=== PATIENT | male | born 1970 | race American Indian/Alaskan Native ===

== ENCOUNTER 2019-01-05 15:31 | Emergency (ER) | payer SELFPAY ==
[2019-01-05 15:38] VITALS: BP 161/86
--- NOTE | 2019-01-05 15:42 | Emergency Department Report ---
Blank Doc - Documentation Documentation: 48-year-odl male that presents with abdominal pain with n/v. This initial assessment/diagnostic orders/clinical plan/treatment(s) is/are subject to change based on patient's health status, clinical progression and re- assessment by fellow clinical providers in the ED. Further treatment and workup at subsequent clinical providers discretion. Patient/guardians urged not to elope from the ED as their condition may be serious if not clinically assessed and managed. Initial orders include: 1- Patient sent to [facility] for further evaluation and treatment 2- labs 3- UA
[2019-01-05 16:17] LABS: Basophils % (Auto) 0.3 % (0.0-1.8); Eosinophils # (Auto) 0.1 K/mm3 (0.0-0.4); Eosinophils % (Auto) 1.1 % (0.0-4.3); Hematocrit 45.2 % (35.5-45.6); Hemoglobin 14.9 gm/dl (11.8-15.2); Lymphocytes # (Auto) 0.9 K/mm3 (1.2-5.4); Lymphocytes % (Auto) 10.7 % (13.4-35.0); Mean Corpuscular HGB Conc 33 % (32-34); Mean Corpuscular Volume 81 fl (84-94); Monocytes % (Auto) 11.5 % (0.0-7.3); Platelet Count 211 K/mm3 (140-440); Red Blood Count 5.58 M/mm3 (3.65-5.03); Red Cell Distribution Width 14.4 % (13.2-15.2)
[2019-01-05 16:58] LABS: Alanine Aminotransferase 34 units/L (7-56); Albumin 4.3 g/dL (3.9-5); BUN/Creatinine Ratio 16; Blood Urea Nitrogen 22 mg/dL (9-20); Calcium 9.4 mg/dL (8.4-10.2); Hemolysis Index 12
--- NOTE | 2019-01-05 18:27 | Emergency Department Report ---
ED Abdominal Pain HPI - General Chief Complaint: Abdominal Pain Stated Complaint: KIDNEY PAIN Time Seen by Provider: 01/05/19 15:41 Source: patient Mode of arrival: Ambulatory Limitations: No Limitations - History of Present Illness Initial Comments: Patient is 48 years old male with history of diabetes. Patient presented to the ER complaining of left flank pain for the last 2 days. Patient describes his pain as intermittent. Patient stated that pain radiated down to the suprapubic area. Patient stated that he experienced frequent urination. Patient denied any fever or chills. No nausea or vomiting. MD Complaint: flank pain -: days(s) (2) Location: L flank Radiation: suprapubic Quality: sharp - Related Data Allergies Allergy/AdvReac Type Severity Reaction Status Date / Time No Known Allergies Allergy Unverified 01/05/19 18:41 ED Review of Systems ROS: Stated complaint: KIDNEY PAIN Other details as noted in HPI Comment: All other systems reviewed and negative Constitutional: denies: chills, fever Respiratory: denies: cough, shortness of breath, SOB with exertion Cardiovascular: denies: chest pain, palpitations Gastrointestinal: abdominal pain. denies: nausea, vomiting, diarrhea, constipation, hematemesis, hematochezia Musculoskeletal: back pain Neurological: denies: headache, weakness ED Past Medical Hx - Social History Smoking Status: Never Smoker Substance Use Type: None ED Physical Exam - General Limitations: No Limitations General appearance: alert, in no apparent distress - Head Head exam: Present: atraumatic, normocephalic, normal inspection - Eye Eye exam: Present: normal appearance - ENT ENT exam: Present: normal exam, mucous membranes moist - Neck Neck exam: Present: normal inspection. Absent: meningismus - Respiratory Respiratory exam: Present: normal lung sounds bilaterally - Cardiovascular Cardiovascular Exam: Present: normal heart sounds - GI/Abdominal GI/Abdominal exam: Present: soft, normal bowel sounds. Absent: distended, tenderness, guarding, rebound, rigid, mass, bruit, pulsatile mass - Extremities Exam Extremities exam: Present: normal inspection, full ROM, normal capillary refill - Back Exam Back exam: Present: normal inspection, CVA tenderness (L). Absent: CVA ten derness (R) - Neurological Exam Neurological exam: Present: alert, oriented X3, CN II-XII intact, normal gait, reflexes normal - Skin Skin exam: Present: warm, intact, normal color ED Course Vital Signs 01/05/19 01/05/19 01/05/19 15:37 18:40 18:51 Temperature 97.7 F Pulse Rate 88 Respiratory 18 17 17 Rate Blood Pressure 161/86 O2 Sat by Pulse 95 Oximetry ED Medical Decision Making - Lab Data Result diagrams: 01/05/19 15:53 01/05/19 15:53 - Radiology Data Radiology results: report reviewed - Medical Decision Making Patient is 48 years old male with history of diabetes. Patient presented to the ER complaining of left flank pain for the last 2 days. Patient describes his pain as intermittent. Patient stated that pain radiated down to the suprapubic area. Patient stated that he experienced frequent urination. Patient denied any fever or chills. No nausea or vomiting. Patient received morphine and Zofran. Patient stated that he is feeling much better. CT abdomen and pelvis showed a left ureteral cycle stone 0.3 cm, obstructing. Patient strongly advised to follow-up with Dr. Lott, urologist for further management. Patient also given a prescription for [place] and Zofran and Flomax. Patient advised to return to the ER if symptoms are not improved. Critical care attestation.: If time is entered above; I have spent that time in minutes in the direct care of this critically ill patient, excluding procedure time. ED Disposition Clinical Impression: Left flank pain, Ureteric calculus Disposition: - TO HOME OR SELFCARE Is pt being admited?: No Condition: Stable Instructions: Renal Colic (ED), Kidney Stones (ED) Referrals: PRIMARY MD LIA [Primary Care Provider] - 3-5 Days TUSHAR LOTT MD [Staff Physician] - 3-5 Days
[2019-01-05] MEDS ORDERED: ONDANSETRON 4 MG/2 ML INJ IM ONE (18:42)
[2019-01-05] MEDS ORDERED: MORPHINE 4 MG/1 ML INJ IM ONE (18:42)
[2019-01-05 19:14] LABS: Bilirubin,Urine Negative (Negative); Blood,Urine Small (Negative); Color,Urine Yellow (Yellow)
[2019-01-05 19:15] LABS: Protein,Urine <15 mg/dL mg/dL (Negative); Urobilinogen,Urine < 2.0 mg/dL (<2.0)
[2019-01-05 19:16] LABS: Mucus,Urine Rare /HPF
--- NOTE | 2019-01-05 19:41 | Cat Scan Report ---
CT ABDOMEN AND PELVIS WITHOUT CONTRAST INDICATION / CLINICAL INFORMATION: ABDOMINAL PAIN/ left flank pain. TECHNIQUE: Axial CT images were obtained through the abdomen and pelvis without IV contrast. All CT scans at [facility] location are performed using CT dose reduction for ALARA by means of automated exposure control. COMPARISON: None available. FINDINGS: LOWER CHEST: No significant abnormality. 0.72 cm nodule adjacent to the fissure right lung probably r epresenting lymph node- Tanya fissural pulmonary nodule LIVER: Diffuse fatty infiltration is present. GALLBLADDER: No significant abnormality. BILE DUCTS: No significant abnormality. PANCREAS: No significant abnormality. SPLEEN: No significant abnormality. ADRENALS: No significant abnormality. RIGHT KIDNEY and URETER: No significant abnormality. LEFT KIDNEY and URETER: Mild dilatation of the left collecting system. There is a 0.3 cm calculus at the left ureterovesical junction. STOMACH and SMALL BOWEL: No significant abnormality. COLON: Diverticulosis sigmoid colon APPENDIX: No significant abnormality. PERITONEUM: No free fluid. No free air. No fluid collection. LYMPH NODES: No significant adenopathy. AORTA and ARTERIES: No significant abnormality. IVC and VEINS: No significant abnormality. URINARY BLADDER: No significant abnormality. REPRODUCTIVE ORGANS: No significant abnormality. ADDITIONAL FINDINGS: None. SKELETAL SYSTEM: No significant abnormality. IMPRESSION: 1. Obstructing calculus left ureterovesical junction with mild hydronephrosis 2. Diverticulosis sigmoid colon 3. Tanya fissural pulmonary nodule most consistent benign nodule 4. Hepatic steatosis Signer Name: Jay Nieves MD Signed: 01/05/2019 7:36 PM Workstation Name: [id number]
== END 2019-01-05 19:50 | disposition home or self-care (01) ==
LOC: ED 15:31
DX: N20.1 Calculus of ureter (principal)
CPT/HCPCS: 36415; 74176; 80053; 81001; 83690; 85025; 96372; 99284; J2270; J2405